=== PATIENT | female | born 1980 | race American Indian/Alaskan Native ===

== ENCOUNTER 2017-03-10 14:11 | Emergency (ER) | payer OTHER ==
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
[2017-03-10] MEDS ORDERED: Lidocaine 1% with EPINEPHrine 1:100,000 20 ML MDV INJECT ONE (14:29)
[2017-03-10] MEDS ORDERED: Diphtheria,Pertussis(Acell),Tetanus Vaccine 0.5 ML SDV IM ONE (14:29)
[2017-03-10 15:20] LABS: CHLORIDE,CL 103 mmol/L (101-111); SODIUM,NA 141 mmol/L (135-145)
== END 2017-03-10 17:05 | disposition left against medical advice (07) ==
LOC: DL.ED 14:11
DX: S61.512A Laceration without foreign body of left wrist, initial encounter (principal); X78.9XXA Intentional self-harm by unspecified sharp object, initial encounter; F32.9 Major depressive disorder, single episode, unspecified; F41.9 Anxiety disorder, unspecified; F17.200 Nicotine dependence, unspecified, uncomplicated; Z23 Encounter for immunization
CPT/HCPCS: 12002; 36415; 80048; 80305; 81001; 81025; 85025; 90471; 99284; G0480; 99283

== ENCOUNTER 2019-02-28 23:23 | Emergency (ER) | payer MEDICAID, OTHER ==
[2019-02-28 23:51] VITALS: BP 150/96
[2019-03-01 01:34] LABS: ANION GAP 14.3; CHLORIDE,CL 106 mmol/L (101-111); SODIUM,NA 139 mmol/L (135-145)
== END 2019-03-01 01:09 | disposition left against medical advice (07) ==
LOC: DL.ED 23:23
DX: Z53.21 Procedure and treatment not carried out due to patient leaving prior to being seen by health care provider (principal)
CPT/HCPCS: 36415; 80053; 85025; 86803; 87340; 87389; G0480; 99284

== ENCOUNTER 2021-09-15 19:13 | Emergency (ER) | payer MEDICAID ==
[2021-09-15 21:05] VITALS: BP 112/88; PULSE 95
[2021-09-15] MEDS ORDERED: Lidocaine 1% 30 ML SDV INJECT ONE (21:56)
[2021-09-15] MEDS ORDERED: Bacitracin Oint 1 GM U/D Packet TOP ONE (21:56)
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
== END 2021-09-15 22:43 | disposition home or self-care (01) ==
LOC: DL.ED 19:13
DX: S51.812A Laceration without foreign body of left forearm, initial encounter (principal); Z72.0 Tobacco use; W26.8XXA Contact with other sharp object(s), not elsewhere classified, initial encounter
CPT/HCPCS: 12001; 99282-25

== ENCOUNTER 2022-03-17 08:38 | Emergency (ER) | payer BC, MEDICAID ==
[2022-03-17 09:15] VITALS: BP 119/72; PULSE 105
[2022-03-17] MEDS ORDERED: Naloxone 2 MG in Sodium Chloride 0.9% 500 ML IV SCH (09:15)
[2022-03-17 09:34] LABS: ANION GAP 17.3 mEq/L (7-13)
[2022-03-17] MEDS ORDERED: Sodium Chloride 0.9% 1,000 ML IV ONE (09:48)
[2022-03-17 10:14] LABS: MDMA (ECSTASY), URINE POSITIVE (NEGATIVE); METHADONE,URINE POSITIVE (NEGATIVE); METHAMPHETAMINES,URINE POSITIVE (NEGATIVE); OPIATES,URINE POSITIVE (NEGATIVE)
[2022-03-17 10:15] LABS: AMPHETAMINES,URINE NEGATIVE (NEGATIVE); BARBITURATES,URINE NEGATIVE (NEGATIVE); BENZODIAZEPINE,URINE NEGATIVE (NEGATIVE); OXYCODONE,URINE NEGATIVE (NEGATIVE); PHENCYCLIDINE,URINE NEGATIVE (NEGATIVE); TCA,URINE NEGATIVE (NEGATIVE)
[2022-03-17] MEDS ORDERED: Sodium Chloride 0.9% 1,000 ML IV SCH (10:15)
== END 2022-03-17 10:35 ==
LOC: DL.ED 08:38
DX: I46.9 Cardiac arrest, cause unspecified (principal); T42.6X1A Poisoning by other antiepileptic and sedative-hypnotic drugs, accidental (unintentional), initial encounter
CPT/HCPCS: 36415; 51702; 80053; 80305; 80307; 81001; 81025; 84145; 84484; 85025; 87086; 87088; 87186; 92950; 93005; 96365; 99285; J2310; J7030; J7040